=== PATIENT | male | born 1960 | race Caucasian/White ===

== ENCOUNTER 2024-01-17 04:04 | Emergency (ER) | payer MEDICARE, SELFPAY ==
[2024-01-17 04:10] VITALS: BP 224/117; PULSE 77; RESP 18; TEMP 36.6; O2SAT 100; BMI 30.5
[2024-01-17 04:16] VITALS: BP 224/117; PULSE 78; RESP 20; O2SAT 97
--- NOTE | 2024-01-17 04:22 | PC.NURSE ---
in room talking with patient at this time.
--- NOTE | 2024-01-17 04:31 | HMH.EDGENADL ---
Discharge Plan Disposition Patient Disposition: Home, Self-Care Condition: Good Prescriptions Prescriptions: New acetaminophen 500 mg capsule 1,000 mg PO Q6H PRN (Reason: pain) 7 Days Qty: 56 0RF ibuprofen 400 mg tablet 400 mg PO Q6H PRN (Reason: pain) 7 Days Qty: 28 0RF methocarbamol 500 mg tablet 500 mg PO Q8H Qty: 90 0RF lidocaine 5 % adhesive patch,medicated 1 patch topical DAILY PRN (Reason: pain) 15 Days Qty: 15 0RF Rx Instructions: leave on most painful area for up to 12 hrs Referrals Follow up/Referrals: Provider,Referral, MD [Primary Care Provider] - See instructions Clinical Impressions Clinical Impression: Lumbar radiculopathy Instructions Patient Instructions: DI for Back Pain With Sciatica Discharge ED Provider: Dunia Zhou General Adult HPI General Chief complaint: Back Pain/Injury Stated complaint: pain right side back down to leg,numb right foot Time Seen by Provider: 01/17/24 04:30 History of Present Illness HPI narrative: 63-year-old male with previous medical history of coronary artery disease, three-vessel CABG, PCI, hypertension, presents with approximately 5 hours of progressively worsening right lower back and right leg pain. Patient states that overnight he has had progressively worsening pain that radiates from his right buttock down to his right foot. He has a pain in his right buttock that he could not alleviate with stretching and [id number] pain medication and began to have tingling in his right foot so presented to the emergency department. Denies urinary retention, urinary incontinence, saddle anesthesia, stool incontinence, skin changes, IV drug use, malignancy history, and states he is ambulating well. He states he has had some back pain issues in the past and has had occasional right arm tingling over the years due to neck problems but has never required spine surgery or seeing a specialist for this. Medications include aspirin 81 mg daily, metoprolol 50 mg twice daily, rosuvastatin. Related Data Previous Rx's Medication Instructions Recorded acetaminophen 500 mg capsule 1,000 mg PO Q6H PRN pain 7 days 01/17/24 #56 caps ibuprofen 400 mg tablet 400 mg PO Q6H PRN pain 7 days #28 01/17/24 tabs lidocaine 5 % topical patch 1 patch topical DAILY PRN pain 15 03/02/24 days #15 ea methocarbamol 500 mg tablet 500 mg PO Q8H #90 tabs 01/17/24 Allergies Allergy/AdvReac Type Severity Reaction Status Date / Time No Known Allergies Allergy Verified 01/17/24 04:37 [facility] Disclaimer: The information contained in this section may have been updated after the patient was seen, as this information can be updated by other users. Social History Smoking Status: Current every day smoker alcohol intake: current current occupational status: employed Travel in the last 8 weeks: Inside the [place] ROS Obtained: Yes All systems reviewed & no additional complaints except as documented Physical Exam General General appearance: alert and in no apparent distress Head Head exam: atraumatic, normocephalic and normal inspection Eye Eye exam: Present normal appearance and EOMI ENT ENT exam: Present normal exam, mucous membranes moist and normal external ear exam Neck Neck exam: Present normal inspection, full ROM and trachea midline; Absent meningismus or lymphadenopathy Chest Chest inspection: Present normal inspection and symmetric chest wall rise; Absent tenderness Respiratory Respiratory exam: Present normal lung sounds bilaterally; Absent respiratory distress Cardiovascular Cardiovascular exam: Present regular rate and normal rhythm; Absent JVD Abdominal Exam Abdominal exam: Present soft and normal bowel sounds; Absent distention, tenderness or guarding Extremities Exam Extremities exam: Present normal inspection, full ROM and normal capillary refill; Absent tenderness or calf tenderness Back Exam Back exam: Present normal inspection and straight leg raise (R) (Pain with straight leg raise on right compared to left); Absent tenderness (No tenderness to palpation of the spinous processes. Minimal tenderness to palpation of the right gluteal region.) Neurological Exam Neurological exam: Present alert, oriented X3 and normal gait; Absent motor sensory deficit Psychiatric Psychiatric exam: Present normal affect and normal mood Skin Skin exam: Present warm, dry, intact and normal color Lymphatic Lymphatic Findings: no adenopathy Medical Decision Making Job Inquiry Pt receiving controlled substance: No Job was queried for this patient: No Vital Signs: 01/17/24 04:10 Temperature 98 F Temperature Source Oral Pulse Rate [Left] 77 Respiratory Rate 18 Blood Pressure [Right Arm] 224/117 H Blood Pressure Mean [Right Arm] 152 Blood Pressure Source [Right Arm] Automatic Cuff Blood Pressure Position [Right Arm] Sitting 02 Sat by Pulse Oximetry 100 Oxygen Delivery Method Room Air Orders (Tests/Meds): ED MEDICATIONS Discontinued Medications Generic Name Dose Route Start Last Admin Trade Name Arun PRN Reason Stop Dose Admin Acetaminophen 1,000 mg 01/17/24 04:28 01/17/24 04:38 Acetaminophen 500mg Tab PO 01/17/24 04:29 1,000 mg ONCE ONE Administration Ketorolac Tromethamine 15 mg 01/17/24 04:28 01/17/24 04:39 Ketorolac 30mg/Ml Vial IV 01/17/24 04:29 15 mg ONCE ONE Administration Lidocaine 1 each 01/17/24 04:29 01/17/24 04:39 Lidocaine 5% Transdermal Patch TP 01/17/24 04:30 1 each ONCE ONE Administration Methocarbamol 500 mg 01/17/24 04:29 01/17/24 04:39 Methocarbamol 500mg Tablet PO 01/17/24 04:30 500 mg ONCE ONE Administration Medical Decision Narrative: This patient presents with back pain most consistent with right-sided low back pain with sciatic radiation in the L5 distribution concerning for possible disc herniation or nerve impingement from muscle strain or another cause. Differential diagnoses includes lumbago versus musculoskeletal spasm / strain versus sciatica. No back pain red flags on history or physical. Presentation not consistent with malignancy (lack of history of malignancy, lack of B symptoms), fracture (no trauma, no bony tenderness to palpation), cauda equina (no bowel or urinary incontinence/retention, no saddle anesthesia, no distal weakness), AAA, viscus perforation , pulmonary embolism, renal colic, pyelonephritis (afebrile, no CVAT, no urinary symptoms). Given the clinical picture, no indication for imaging at this time. Presentation complicated by social determinants of health and that [place] and does not have primary care available within the next few days. Plan: pain control, supportive care, reassess On reassessment: Patient had significant improvement in his pain. He had resolution of the tingling of his right foot. Patient is comfortable monitoring his symptoms at home and he understands return precautions including signs of cauda equina such as bladder or bowel changes, loss of sensation, difficulty walking, or other concerns. Advised patient to follow-up with his primary care doctor as he gets home to [place] later this week. Provided multimodal pain control prescriptions. Patient ambulated well in the emergency department prior to discharge. Critical Care Critical Care Time Critical Care Time: No
[2024-01-17] MEDS: ACETAMINOPHEN 500MG TAB 1000 MG PO (04:38)
[2024-01-17] MEDS: METHOCARBAMOL 500MG TABLET 500 MG PO (04:39)
[2024-01-17] MEDS: KETOROLAC 30MG/ML VIAL 15 MG IV (04:39)
[2024-01-17] MEDS: LIDOCAINE 5% TRANSDERMAL PATCH 1 EACH TP (04:39)
--- NOTE | 2024-01-17 04:49 | PC.NURSE ---
Pt dropped robaxin and tylenol in floor, charge notified, advised to pull again from [facility]
[2024-01-17 05:54] VITALS: BP 184/107; PULSE 77; RESP 18; TEMP 36.8; O2SAT 97
== END 2024-01-17 05:57 | disposition home or self-care (01) ==
PROVIDERS: Emergency Provider Emergency Medicine
DX: M54.16 Radiculopathy, lumbar region (principal); M79.604 Pain in right leg; R20.0 Anesthesia of skin; I25.10 Atherosclerotic heart disease of native coronary artery without angina pectoris; I10 Essential (primary) hypertension; F17.200 Nicotine dependence, unspecified, uncomplicated; Z79.82 Long term (current) use of aspirin
CPT/HCPCS: 96374; 99284